=== PATIENT | male | born 1995 | race Caucasian/White ===

== ENCOUNTER 2022-04-09 10:42 | Emergency (ER) | payer OTHER ==
[~2022-04-09] VITALS: Ht 172.7 cm; Wt 77.1 kg
[2022-04-09] MEDS ORDERED: VRAYLAR4.5 MG PO (11:14)
[2022-04-09] MEDS ORDERED: Cephalexin500 M1 PO (13:17)
[2022-04-09] MEDS ORDERED: Norco 5-325 Ta1 EACH PO (13:17)
== END 2022-04-09 13:32 | disposition home or self-care (01) ==
LOC: ER 10:42
DX: S68.021A Partial traumatic metacarpophalangeal amputation of right thumb, initial encounter (principal); S61.111A Laceration without foreign body of right thumb with damage to nail, initial encounter; F17.210 Nicotine dependence, cigarettes, uncomplicated; Z79.899 Other long term (current) drug therapy; W23.0XXA Caught, crushed, jammed, or pinched between moving objects, initial encounter
CPT/HCPCS: 12041; 73140; 90471; 90714; 99283-25; A9270; J2405

== ENCOUNTER 2025-07-08 13:42 | Inpatient (IN) | payer OTHER ==
[~2025-07-08] VITALS: Wt 72.0 kg
[~2025-07-08 13:42] MED LIST: Cephalexin500 M1 PO; Norco 5-325 Ta1 EACH PO; VRAYLAR4.5 MG PO
[2025-07-08] MEDS ORDERED: Polyethylene Glycol 3350 17 gm PO PRN (18:00)
[2025-07-08] MEDS ORDERED: LORazepam 2 MG/ML 1ML Injection IM PRN (18:00)
[2025-07-08] MEDS ORDERED: Ondansetron 4 MG SoluTab MM PRN (18:00)
[2025-07-08] MEDS ORDERED: DiphenhydrAMINE HCl 50 MG/ML 1ML Vial IM PRN (18:00)
[2025-07-08] MEDS ORDERED: FLU VACC TS2025-26(6MOS UP)/PF 45 MCG/0.5 ML SYRINGE IM SCH (18:05)
[2025-07-08] MEDS ORDERED: Aluminum Hydroxide 320MG/5ML 473 ML PO PRN (18:05)
[2025-07-08] MEDS ORDERED: Haloperidol Lactate Inj. 5 MG/ML Injection IM PRN (18:05)
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
--- NOTE | 2025-07-08 23:29 | NUR ---
PT REQUESTED ODL AND SSN BE LEFT OUT FOR GIRLFRIEND TOÑO TO TRIMMER BUFFING WHEEL TOMORROW AFTER SHE GETS OFF WORK. THESE WERE PLACED IN A SEPARATE ENVELOPE INSIDE THE SAFE WITH HIS WALLET.
--- NOTE | 2025-07-09 05:25 | NUR ---
SHIFT SUMMARY Assumed patient care at 0015. Pt is lying on his bed with eyes closed and appears to be asleep. Respirations regular and unlabored, no apparent distress. Staff continues to monitor q15m for safety and wellness.
[2025-07-09 07:31] LABS: CHOL/HDL RATIO 3.8; Cholesterol 172 mg/dL (50-200); HDL Cholesterol 45 mg/dL (>39); LDL/HDL RATIO 2.4; Low Density Lipoprotein Chol 108 mg/dL (0-110); Triglycerides 97 mg/dL (30-140); Very Low Density Lipoprot Chol 19 mg/dL (6-28)
--- NOTE | 2025-07-09 08:46 | NUR ---
SHIFT ASSESSMENT: PT DENIED SI, HI, AND AVH. HE COMPLAINED OF JOINT PAIN 3/10w, "I AWAYS HAVE AT LEAST 3/10w PAIN...I THINK IT'S ARTHRITIS." PT DESCRIBED HIS MOOD , "NORMAL...CONTENT," HIS AFFECT WAS EUTHYMIC. PT REPORTED HIS GOALS , "GET MY MEDS BALANCED, LEARN PREVENTITIVE STEPS AND LEARN NEW COPING SKILLS." PT WAS NOT HAPPY ABOUT HAVING TO WAIT FOR COFFEE AND THAT THERE IS A CERTAIN WINDOW OF TIME THAT COFFEE IS OFFERED.
[2025-07-09 08:49] VITALS: BP 140/87
[2025-07-09] MEDS ORDERED: Multivitamins 1 Tab PO SCH (09:00)
[2025-07-09] MEDS ORDERED: QUET200 PO (13:54)
[2025-07-09] MEDS ORDERED: SULTRIDS PO (13:58)
[2025-07-09 20:07] VITALS: BP 126/88
--- NOTE | 2025-07-10 05:06 | NUR ---
SHIFT SUMMARY Pt is A&O, calm, cooperative, polite, appropriately dressed, eye contact is appropriate. Pt stated that his mood is "tired," affect is euthymic and full range. Pt denies SI, HI, and hallucinations. He also denies current pain or other medical issues. Pt stated that he had disturbed sleep last night and attributed it to keeping his nicotine patch on overnight. Pt expressed disappointment that he cannot visit with his children while here, stating that "my kids keep me together." Pt spent the evening watching TV with peers and staff. Staff continues to monitor q15m for safety and wellness.
--- NOTE | 2025-07-10 17:18 | NUR ---
SHIFT SUMMARY PT [id number]. PLEASANT AND COOPERATIVE WITH CARE. PT REPORTED "BETTER MOOD" THIS MORNING, STATING HE SLEPT WELL AND HAS NOT NOTICED ANY MEDICATION SIDE EFFECTS AT THIS TIME. HE ALSO DENIED SI/HI AND AVTH. PT HAS BEEN FOLLOWING HIS TREATMENT PLAN INCLUDING TAKING MEDICATIONS PRESCRIBED, ATTENDING ALL [facility] THERAPY GROUPS AND MINGLING APPROPRIATELY WITH PEERS/STAFF. PT ALSO HAD A VISIT WITH HIS SIGNIFICANT OTHER THIS SHIFT. CURRENT DC PLANS ARE ESTIMATED FOR WEDNESDAY THIS WEEK. PT IS CURRENLTY SITTING IN GROUP ROOM WATCHING TV. DENIED ANY NEEDS AT THIS TIME.
[2025-07-10 19:11] VITALS: BP 133/79
--- NOTE | 2025-07-11 04:22 | NUR ---
SHIFT SUMMARY PT PRESENT IN GROUP ROOM PLAYING CARDS WITH PEERS AT START OF SHIFT. HE DENIES ANY SI, HI OR AVTH. HE REPORTS HIS MOOD "I'M DOING GREAT". MOOD IS EUTHYMIC. HE HAD EVENING SNACK, WAS COMPLIANT WITH SCHEDULED MEDS. NICOTINE PATCH WAS REMOVED DURING MEDICATION ADMINISTRATION. HE WATCHED TV AND WENT TO BED AROUND 2130. HE HAS REMAINED IN BED THROUGHOUT THE NIGHT. Q15 MINUTE CHECKS TO CONTINUE PER PT SAFETY AND WELLNESS.
[2025-07-11 08:13] VITALS: BP 136/83
--- NOTE | 2025-07-11 12:32 | NUR ---
IMPORTANT DISCHARGE INFORMATION PATIENT IS REQUESTING DISCHARGE TODAY. HE WILL BE LEAVING AROUND 2PM. HIS GIRLFRIEND STEVEN WILL BE PICKING HIM UP. HER PHONE NUMBER IS .CHARLES IS CONCERNED ABOUT MISSING MORE WORK DAYS AND PLANS ON RETURNING WEDNESDAY. FOLLOW UP WITH PCP [facility] ON 07/13/25 AT 2PM. MENTAL HEALTH REFERRAL PLACED AT SAME CLINIC. FOLLOW UP WITH [facility] OPEN ACCESS. PHARMACY: [facility] FAX NUMBER IS
[2025-07-11] MEDS ORDERED: BUSP5 PO (14:13)
[2025-07-11] MEDS ORDERED: MIRT15 PO (14:16)
--- NOTE | 2025-07-11 15:47 | NUR ---
DISCHARGE SUMMARY: 15:45 PT WAS DISCHARGED TO HOME VIA HIS OWN POV WITH GIRLFRIEND. HE LEFT WITH ALL OF HIS BELONGINGS AND HIS PRINTED DISCHARGE INSTRUCTIONS. HE VERBALIZED UNDERSTANDING OF HIS DISCHARGE INSTRUCTIONS. HE REPORTED READINESS TO GO HOME, "I FEEL LIKE I'M ON THE RIGHT MEDS AND CAN HANDLE MY LIFE NOW. I WANT TO KEEP APPOINTMENTS WITH A THERAPIST, I WILL HAVE TO DO PHONE APPOINTMENTS...WITH MY JOB AND FAMILY THERE'S NO TIME FOR IT ANY OTHER WAY." PT WAS ENCOURAGED TO CALL THE CLINICS AND INQUIRE ABOUT DOING THAT.
== END 2025-07-11 15:45 | disposition home or self-care (01) | DRG 885 ==
LOC: BHU 13:42
PROVIDERS: ADMIT Psychiatry & Neurology Psychiatry
DX: F33.9 Major depressive disorder, recurrent, unspecified (principal); R45.851 Suicidal ideations; F42.9 Obsessive-compulsive disorder, unspecified; Z98.890 Other specified postprocedural states; Z79.899 Other long term (current) drug therapy; Z89.011 Acquired absence of right thumb; Z79.1 Long term (current) use of non-steroidal anti-inflammatories (NSAID)
CPT/HCPCS: 36415; 80061; 83036; A9270